=== PATIENT | female | born 1950 | race Caucasian/White ===

== ENCOUNTER 2017-07-18 13:06 | Emergency (ER) | payer MEDICARE, BC ==
[2017-07-18 13:26] VITALS: BP 154/89
--- NOTE | 2017-07-18 13:48 | UC ---
Respiratory Complaint HPI - HPI Summary HPI Summary: Pt developed dry cough 1 week ago. Has progressed into a productive cough, significant fatigue, and muscle aches. Feels short of breath at times - especially with walking and being outside in the cold. No chest pain or palpitations. Has not tried anything OTC - History of Current Complaint Chief Complaint: UCGeneralIllness Stated Complaint: COUGH,ACHES,FATIGUE Time Seen by Provider: 07/18/17 13:46 Hx Obtained From: Patient ?: No Onset/Duration: Sudden Onset, Worse Since - 1week ago Timing: Constant Severity Initially: Mild Severity Currently: Moderate Character: Cough: Productive Aggravating Factors: Exertion, Deep Breaths, Recumbent Position Associated Signs And Symptoms: Positive: Dyspnea, Chills. Negative: Hemoptysis , Dizziness, Nasal Congestion, Hoarseness, Sinus Discomfort - Risk Factors Cardiac Risk Factors: Elevated Lipids - Allergies/Home Medications Allergies/Adverse Reactions: Allergies Allergy/AdvReac Type Severity Reaction Status Date / Time Alendronate [From Fosamax] Allergy Unknown Verified 07/18/17 13:14 Reaction Details Amoxicillin [From Augmentin] AdvReac GI Upset Verified 07/18/17 13:14 Clavulanic Acid AdvReac GI Upset Verified 07/18/17 13:14 [From Augmentin] Home Medications: Home Medications Atorvastatin* [Lipitor*] 10 mg PO DAILY 07/18/17 [History Confirmed 07/18/17] Latanoprost 0.005%* [Xalatan 0.005%*] 07/18/17 [History] Timolol Maleate (Ophth) [Istalol] 0.5 % OP 07/18/17 [History Confirmed 07/18/17] PMH/Surg Hx/FS Hx/Imm Hx Previously Healthy: Yes Cardiovascular History: Other Other Cardiovascular History: Hyperlipidemia Cancer History: Breast Cancer - In remission as of 2016. Followed by Jason - Surgical History Surgical History: Yes Surgery Procedure, Year, and Place: R breast lumpectomy 2015. hysterectomy 1992 - Social History Lives: With Family Alcohol Use: Occasionally Alcohol Amount: 2 glasses wine a night Substance Use Type: None Smoking Status (MU): Former Smoker Have You Smoked in the Last Year: No - Immunization History Most Recent Influenza Vaccination: 2017 Most Recent Pneumonia Vaccination: 2016 Review of Systems Constitutional: Chills Skin: Negative ENT: Negative Respiratory: Shortness Of Breath, Cough Cardiovascular: Negative Gastrointestinal: Nausea Genitourinary: Negative Neurological: Negative Psychological: Negative All Other Systems Reviewed And Are Negative: Yes Physical Exam Triage Information Reviewed: Yes Appearance: Ill-Appearing Vital Signs: Initial Vital Signs Temp 99.3 F 07/18/17 13:18 Pulse 99 07/18/17 13:18 Resp 20 07/18/17 13:18 BP 154/89 07/18/17 13:18 Pulse Ox 99 07/18/17 13:18 Vital Signs Reviewed: Yes Eye Exam: Normal Eyes: Positive: Conjunctiva Clear ENT Exam: Normal ENT: Positive: Hearing grossly normal, Pharynx normal, TMs normal. Negative: Pharyngeal erythema, Nasal congestion, Nasal drainage, TM bulging, TM dull, TM red, Tonsillar swelling, Tonsillar exudate Neck: Positive: Supple, Nontender, No Lymphadenopathy Respiratory: Positive: Chest non-tender, No respiratory distress, No accessory muscle use, Decreased breath sounds - LLL, Crackles - LLL, Wheezing - Left lung Cardiovascular: Positive: RRR, No Murmur, Pulses Normal Neurological: Positive: Alert Psychological: Positive: Age Appropriate Behavior Skin: Positive: Other - No LE edema UC Diagnostic Evaluation - Laboratory O2 Sat by Pulse Oximetry: 99 Respiratory Course/Dx - Course Course Of Treatment: Cough getting progressively worse with associated myalgias , fatigue, and SOB. CXR revealed LLL PNA. Rx for azithromycin. F/u with PCP in 4 -6weeks to ensure pneumonia resolution or call for appt sooner if no change in symptoms. - Differential Dx/Diagnosis Differential Diagnosis/HQI/PQRI: Bronchitis, CHF, Influenza Provider Diagnoses: LLL Pneumonia Discharge - Discharge Plan Condition: Stable Disposition: HOME Prescriptions: Azithromyxin SHARI (NF) [Z-Shari (Zithromax) 250 mg tabs #6] 2 tab PO .TODAY, THEN 1 DAILY #6 tab Patient Education Materials: Pneumonia (ED) Referrals: Hosea Barker MD [Primary Care Provider] - 08/18/17 Additional Instructions: 1) Azithromycin take as directed 2) Drink plenty of fluids! Please schedule a follow up appointment with your PCP in 1 month to ensure pneumonia resolution. If you experience no change or worsening symptoms - please call our office, go to ED, or call your PCP sooner to seek treatment.
--- NOTE | 2017-07-18 14:19 | RAD ---
Indication: Cough, dyspnea. 2 views of the chest including dual energy PA views are reviewed and compared to previous exam dated September 08, 2015. Airspace disease is noted in the left lower lobe consistent with left lower lobe pneumonia. Right lung field is clear. IMPRESSION: Findings consistent with left lower lobe pneumonia.
== END 2017-07-18 15:00 | disposition home or self-care (01) ==
LOC: UCEAST 13:06
DX: J18.9 Pneumonia, unspecified organism (principal); Z88.1 Allergy status to other antibiotic agents; E78.5 Hyperlipidemia, unspecified; Z87.891 Personal history of nicotine dependence
CPT/HCPCS: 71020; 99212; G0463